=== PATIENT | male | born 1990 | race Caucasian/White ===

== ENCOUNTER 2019-05-28 13:50 | Emergency (ER) | payer MEDICAID, SELFPAY ==
[~2019-05-28] VITALS: Ht 185.4 cm; Wt 79.5 kg
[2019-05-28 14:02] VITALS: BP 132/86
[2019-05-28] MEDS ORDERED: PERCOCET 5MG/325MG TAB PO ONE (15:00)
--- NOTE | 2019-05-28 15:21 | REP ---
Right ring finger four views : There is no fracture or dislocation. Mineralization and joint spaces are normal. There are no calcifications or foreign bodies. Impression: Negative Right ring finger . Electronically Signed by Jairo Sanchez MD 05/28/2019 03:12 P
[2019-05-28] MEDS ORDERED: LIDOCAINE 2% MDV 20 ML VIAL SC ONE (15:45)
[2019-05-28] MEDS ORDERED: AMMONIA AROMATIC INHALANT (FLOOR STOCK) As Ordered ONE (16:04)
[2019-05-28] MEDS ORDERED: AUGM875T28 PO (16:47)
== END 2019-05-28 16:50 | disposition home or self-care (01) ==
LOC: M ED 13:50 → EDBD 13:50 → M ED 16:50
DX: S61.314A Laceration without foreign body of right ring finger with damage to nail, initial encounter (principal); S61.304A Unspecified open wound of right ring finger with damage to nail, initial encounter; W26.9XXA Contact with unspecified sharp object(s), initial encounter; Y92.099 Unspecified place in other non-institutional residence as the place of occurrence of the external cause; Y93.89 Activity, other specified; Y99.9 Unspecified external cause status; Z72.0 Tobacco use; Z88.0 Allergy status to penicillin; Z88.8 Allergy status to other drugs, medicaments and biological substances